=== PATIENT | male | born 1965 | race Caucasian/White ===

== ENCOUNTER → 2021-04-20 | Outpatient (CLI) | payer BC ==
--- NOTE | 2021-04-21 07:28 | US ---
EXAMINATION TYPE: US thyroid st tissue head/neck DATE OF EXAM: 04/20/2021 COMPARISON: NONE CLINICAL HISTORY: E03.9 Hypothyroidism, unspecified. Takes Levothyroxine. GLAND SIZE: Right Lobe: 4.5 x 2.5 x 1.5 cm Overall Parenchyma: heterogenous Left Lobe: 5.5 x 1.6 x 1.9 cm Overall Parenchyma: heterogeneous Isthmus Thickness: 0.4 cm NODULES RIGHT: # of nodules measured on right: 0 LEFT: # of nodules measured on left: 0 ISTHMUS: # of nodules measured in the isthmus: 0 Bilateral neck scanned: lymph node seen superolateral to right thyroid =1.4 x 0.8 x 0.4cm and a lymph node is seen superolateral to left thyroid = 1.7 x 1.0 x 0.5cm. IMPRESSION: Left thyroid lobe is enlarged. Nonspecific glandular heterogeneity. Lymph nodes as noted above.
== END | disposition home or self-care (01) ==
LOC: RADUSWWP 15:27
PROVIDERS: ATTEND Family Medicine
DX: E04.9 Nontoxic goiter, unspecified (principal)
CPT/HCPCS: 76536

== ENCOUNTER → 2021-07-20 | Outpatient (CLI) | payer BC ==
--- NOTE | 2021-07-20 22:21 | CT ---
EXAMINATION TYPE: CT soft tissue neck wo/w con DATE OF EXAM: 07/20/2021 COMPARISON: Thyroid ultrasound April 20, 2021 HISTORY: enlarged lymph nodes CT DLP: [id number] mGycm. Automated Exposure Control for Dose Reduction was Utilized. TECHNIQUE: CT scan of the neck is performed following without and with IV Contrast, patient injected with 70 mL of Isovue 300. FINDINGS: Airway: Some prominence of the adenoid tonsils and posterior nasopharynx and the hard palate at junct ion of the nasopharyngeal and oropharyngeal airways. Region of the epiglottis and vallecula appears w ithin normal limits. Hypopharyngeal airway is maintained. Thyroid gland is normal in size. Lung apice s are clear. Parotid/submandibular glands: No gross abnormality seen. Carotid/Vascular Structures: Mild calcified plaque left greater than right carotid bulbs without sign ificant stenosis. Osseous Structures: Slight levoconvex scoliotic curvature centered upper thoracic spine. Mild to mode rate disc space narrowing and spurring C5-C6 level. Other: A few scattered subcentimeter lymph nodes throughout the neck bilaterally correlate with recen t ultrasound. No abnormal greater than 1 cm neck adenopathy. The parapharyngeal fat spaces are symmet randi and maintained. IMPRESSION: Scattered subcentimeter lymph nodes. No definitive abnormal greater than 1 cm neck adenop athy. No obvious suspicious mucosal mass.
== END | disposition home or self-care (01) ==
LOC: RADCTMAIN 16:26
PROVIDERS: ATTEND Family Medicine
DX: R59.9 Enlarged lymph nodes, unspecified (principal)
CPT/HCPCS: 70492; 36415; Q9967